=== PATIENT | male | born 1980 | race Two or more races ===

== ENCOUNTER 2017-08-12 19:36 | Emergency (ER) | payer OTHER ==
[~2017-08-12] VITALS: Ht 175.3 cm; Wt 78.5 kg
--- NOTE | 2017-08-12 19:57 | ED.ADGEN ---
Adult General Chief Complaint Chief Complaint " .. I think I may have the flu ...".. My daughter had Influ. 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 Patient is normally healthy. Patient up-to-date with vaccinations including flu vaccination. Patient normally follows at [facility]. No recent travel. Has been exposed to his daughter who has influenza A. I have just been sick the last 24 hours. Review of Systems Review of Systems Constitutional: History fever or chills [] Eyes: Denies change in visual acuity, redness, or eye pain [] HENT: History nasal congestion and sore throat [] Respiratory: Denies cough or shortness of breath [] Cardiovascular: No additional information not addressed in HPI [] GI: Denies abdominal pain, nausea, vomiting, bloody stools or diarrhea [] : Denies dysuria or hematuria [] Musculoskeletal: Denies back pain or joint pain [] Integument: Denies rash or skin lesions [] Neurologic: Denies headache, focal weakness or sensory changes [] Endocrine: Denies polyuria or polydipsia [] All other systems were reviewed and found to be within normal limits, except as documented in this note. Family History Family History Daughter has influenza A Current Medications Current Medications Current Medications Medications (Trade) Dose Ordered Sig/[facility] Start Time Stop Time Status Last Admin Dose Admin Oseltamivir Phosphate (Tamiflu) 75 mg 1X ONCE 08/12/17 21:45 08/12/17 21:46 DC 08/12/17 21:42 75 MG Allergies Allergies Allergies Coded Allergies Type Severity Reaction Last Updated Verified No Known Drug Allergies 08/12/17 No Physical Exam Physical Exam Constitutional: Well developed, well nourished, moderately acute distress, non- toxic appearance. [] HENT: Normocephalic, atraumatic, bilateral external ears normal, oropharynx moist, injected pharynx, no oral exudates, nose rhinorrhea Eyes: PERRLA, EOMI, conjunctiva normal, no discharge. [] Neck: Normal range of motion, no tenderness, supple, no stridor. [] Cardiovascular:Heart rate regular rhythm, no murmur [] Lungs & Thorax: Bilateral breath sounds clear to auscultation [] Abdomen: Bowel sounds normal, soft, no tenderness, no masses, no pulsatile masses. [] Skin: Warm, dry, no erythema, no rash. [] Back: No tenderness, no CVA tenderness. [] Extremities: No tenderness, no cyanosis, no clubbing, ROM intact, no edema. [] Neurologic: Alert and oriented X 3, normal motor function, normal sensory function, no focal deficits noted. [] Psychologic: Affect normal, judgement normal, mood normal. [] Current Patient Data Vital Signs Vital Signs Date Time Temp Pulse Resp B/P (MAP) Pulse Ox O2 Delivery O2 Flow Rate FiO2 08/12/17 21:42 92 18 111/73 (86) 99 Room Air 08/12/17 19:58 99.1 Lab Results Laboratory Tests Test 08/12/17 19:50 Influenza Type A (Rapid) Positive (NEGATIVE) Influenza Type B (Rapid) Negative (NEGATIVE) Group A Streptococcus Rapid Negative (NEGATIVE) EKG EKG [] Radiology/Procedures Radiology/Procedures [] Course & Med Decision Making Course & Med Decision Making Pertinent Labs and Imaging studies reviewed. (See chart for details). Gargle with Listerine 4 times a day. Take [id number] Tylenol and ibuprofen for discomfort and fever. Benadryl 25-50 mg 4 times daily may be helpful for congestion and drainage. Push fluids. Take Tamiflu 75 mg twice a day for the next 5 days. Marked discomfort may take Vicoprofen up 4 times a day. Follow-up primary care. [] Final Impression Final Impression 1. Viral Syndrome[]-influenza A Problems: Dragon Disclaimer Dragon Disclaimer This electronic medical record was generated, in whole or in part, using a voice recognition dictation system. PABLO ABBASI MD Aug 12, 2017 19:57
[2017-08-12 21:18] LABS: INFLUENZA A PATIENT POSITIVE (NEGATIVE); INFLUENZA B PATIENT NEGATIVE (NEGATIVE)
[2017-08-12] MEDS ORDERED: OSEL75CA PO (21:30)
[2017-08-12] MEDS ORDERED: HYDR-79 PO ×2 (21:30→21:42)
[2017-08-12 21:42] VITALS: BP 111/73
[2017-08-12] MEDS ORDERED: ONDA8TAB12 PO (21:42)
[2017-08-12] MEDS ORDERED: ACET500T68 PO (21:42)
[2017-08-12] MEDS ORDERED: IBUP800T19 PO (21:42)
[2017-08-12] MEDS ORDERED: DIPH25CA58 PO (21:44)
[2017-08-12] MEDS ORDERED: OSELTAMIVIR 75 MG CAPSULE PO ONE (21:45)
== END 2017-08-12 21:48 | disposition home or self-care (01) ==
LOC: ER 19:36
DX: J09.X2 Influenza due to identified novel influenza A virus with other respiratory manifestations (principal); B34.9 Viral infection, unspecified
CPT/HCPCS: 87070; 87804; 87880; 99284